=== PATIENT | male | born 1995 | race Caucasian/White ===

== ENCOUNTER 2020-04-06 17:22 | Emergency (ER) | payer SELFPAY ==
[~2020-04-06] VITALS: Ht 175.3 cm; Wt 103.0 kg
[2020-04-06 17:27] VITALS: Ht 175.3 cm; Wt 103.0 kg
[2020-04-06 19:31] VITALS: BP 134/86
== END 2020-04-06 19:31 | disposition home or self-care (01) ==
LOC: ED 17:22
DX: S93.402A Sprain of unspecified ligament of left ankle, initial encounter (principal); X58.XXXA Exposure to other specified factors, initial encounter; Y93.68 Activity, volleyball (beach) (court); Y92.89 Other specified places as the place of occurrence of the external cause; Y99.8 Other external cause status

== ENCOUNTER 2020-04-16 11:53 | Emergency (ER) | payer SELFPAY ==
[~2020-04-16] VITALS: Ht 175.3 cm; Wt 105.7 kg
[2020-04-16 12:06] VITALS: Ht 175.3 cm; Wt 105.7 kg
[2020-04-16 13:56] VITALS: BP 139/82
== END 2020-04-16 13:56 | disposition home or self-care (01) ==
LOC: ED 11:53
DX: S93.402A Sprain of unspecified ligament of left ankle, initial encounter (principal); W01.198A Fall on same level from slipping, tripping and stumbling with subsequent striking against other object, initial encounter; Y93.67 Activity, basketball; Y92.310 Basketball court as the place of occurrence of the external cause; Y99.8 Other external cause status
CPT/HCPCS: Q0092